=== PATIENT | female | born 1965 | race Caucasian/White ===

== ENCOUNTER 2018-11-06 06:10 | Observation (INO) | payer BC ==
[~2018-11-06] VITALS: Ht 165.1 cm; Wt 66.9 kg
--- NOTE | ~2018-11-06 | HEMODYNAMI ---
PATIENT:RADHA SALINAS MEDICAL RECORD: [id number] : 61 LOCATION:[address] ADMISSION DATE: 11/06/18 Generatedon:11/06/201811:07 Patient name: RADHA SALINAS Patient #: [id number] SSN: : Date of study: 11/06/2018 Page: Of Hemodynamic Procedure Report Patient Data Patient Demographics Procedure consent was obtained First Name: RADHA Gender: Female Last Name: BRAD : 1965 Middle Initial: ADRIANE Age: 53 year(s) Patient #: [id number] Race: Unknown Additional ID: [id number] Contact details Address: [address] [place] [address] State: [facility]: [place] Zip code: [address] Past Medical History Allergies: No known allergies Admission Admission Data Admission Date: 11/06/2018 Admission Time: 6:42 Room #: 2108 Height (in.): 64.96 BSA: 1.73 (m2) Height (cm.): 165 BMI: 24.24 (kg/m2) Weight (lbs.): 145.51 Weight (kg.): 66 Lab Results Lab Result Date: 11/06/2018 Lab Result Time: 0:00 Biochemistry Name Units Result Min Max BUN mg/dl 11 --(-*--)-- 7 18 Creatinine mg/dl 0.7 --(*---)-- 0.6 1.3 CBC Name Units Result Min Max Hemoglobin g/dl 13.5 --(*---)-- 13.5 17.5 Procedure Procedure Types Cath Procedure Diagnostic Procedure LHC LH w/Coronaries Procedure Description Procedure Date Procedure Date: 11/06/2018 Procedure Start Time: 10:58 Procedure End Time: 11:05 Procedure Staff Name Function Obi Mccallum MD Performing Physician Janie Briones RT Monitor Bebo Stearns RN Nurse Juan York RT Scrub Procedure Data Cath Procedure Fluoroscopy Diagnostic fluoroscopy Total fluoroscopy Time: 1.2 time: 1.2 min min Diagnostic fluoroscopy Total fluoroscopy dose: 207 dose: 207 mGy mGy Contrast Material Contrast Material Type Amount (ml) Isovue 300 46 Entry Location Entry Primary Successful Side Size Upsize Upsize Entry Closure Schulz ccessful Closure Location (Fr) 1 (Fr) 2 (Fr) Remarks Device Remarks Radial Right 6 Fr Mechanical artery Short Compression Estimated blood loss: 10 ml Diagnostic catheters Device Type Used For End Catheter Placement DIAGNOSTIC [place] 110cm 5 Procedure Fr catheter ([id number]) Procedure Complications No complications Procedure Medications Medication Administration Route Dosage 0.9% NaCl I.V. 100 ml/hr Oxygen etCO2 Nasal cannula 2 l/min Heparin Flush Bag added to field 2 bags (1000units/500ml NS) Lidocaine 2% added to field 20 Radial Cocktail added to field 1 syringe (Verapomil 2mg/Nitro 400mcg/Heparin 1500units) Versed I.V. 2 mg Fentanyl I.V. 100 mcg Radial Cocktail I.A. 1 syringe (Verapomil 2mg/Nitro 400mcg/Heparin 1500units) Hemodynamics Rest BSA: 1.73 (m2) HGB: 13.5 (g/dl) O2 Consumption: Estimated: 180.89 (ml/min) O2 Co nsumption indexed: Estimated:104.56 (ml/min/m) Heart Rate: 92 (bpm) Pressure Samples Time Site Value (mmHg) Purpose Heart Use Rate(bpm) 11:00 LV 100/5,5 Snapshot 104 11:00 AO 94/76(84) Pullback 106 11:00 LV 95/2,3 Pullback 106 Gradients Valve Time Site 1 Site 2 Mean SEP/DFP Peak To Heart Use (mmHg) (sec/min) Peak Rate (mmHg) (bpm) Aortic 11:00 LV AO 2 15 1 106 95/2,3 94/76(84) Calculations Valve P-P Mean Valve Index Valve Source Name Gradient Area Flow (cm2) Aortic 1 2 1 2 Snapshots Pre Cath Intra NCS Post Cath Vital Signs Time Heart Resp SPO2 etCO2 NIBP (mmHg) Rhythm Pain Sedation Rate (ipm) (%) (mmHg) Status Level (bpm) 10:41:34 95 17 99 35.3 124/82(98) NSR 0 (11) 10(A) , No pain 10:45:41 85 11 98 36.8 116/78(94) NSR 0 (11) 10(A) , No pain 10:49:47 96 28 98 39.8 123/76(103) NSR 0 (11) 10(A) , No pain 10:53:55 93 12 97 38.3 112/75(92) NSR 0 (11) 10(A) , No pain 10:57:57 94 12 97 37.6 118/79(90) NSR 0 (11) 10(A) , No pain 11:02:02 105 12 94 36 109/60(86) NSR 0 (11) 9(A) , No pain 11:06:08 99 11 95 37.6 106/66(94) NSR 0 (11) 9(A) , No pain Medications Time Medication Route Dose Verified Delivered Reason Notes Effectiveness by by 10:41:53 0.9% NaCl I.V. 100 Bebo Bebo Per ml/hr Daryn Stearns physician RN RN 10:42:06 Oxygen etCO2 2 l/min Bebo Bebo for low 02 Nasal Lorigan Daryn sats cannula RN RN 10:42:21 Heparin Flush added 2 bags Bebo Bebo used for Bag to Lorigan Lornatalie procedure (1000units/500ml [facility] RN RN NS) 10:42:35 Lidocaine 2% added 20ml Bebo Bebo for local to vial Lorigan Lorigan anesthetic RN RN 10:42:46 Radial Cocktail added 1 Bebo Bebo used for (Verapomil to syringe Lorigan Lorigan procedure 2mg/Nitro RN RN 400mcg/Heparin 1500units) 10:56:28 Versed I.V. 2 mg Bebo Bebo for sedation Daryn Stearns RN RN 10:56:37 Fentanyl I.V. 100 mcg Bebo Bebo for sedation Daryn Stearns RN RN 10:59:12 Radial Cocktail I.A. 1 Bebo Obi for (Verapomil syringe Lorigan Alessio vasodilation 2mg/Nitro TAMARA GORDON 400mcg/Heparin 1500units) Procedure Log Time Note 10:14:20 Juan York RT(R) sent for patient. Start room use. 10:14:21 Time tracking: Call back (After hours or weekends) 10:14:26 Plan of Care:Hemodynamics will remain stable., Cardiac rhythm will remain stable., Comfort level will be maintained., Respiratory function will remain adequate., Patient/ family verbilizes understanding of procedure., Procedure tolerated without complication., Recovers from procedure without complications.. 10:27:40 Patient received from Med II to CCL 1 Alert and oriented. Tansferred to table in Supine position. 10:27:41 Warm blankets applied, and mady hugger turned on for patient comfort. 10:27:43 Correct patient and procedure confirmed by team. 10:27:50 H&P Date Dictated: 11/05/2018 Within 30 days and on chart., H&P Addendum completed by physician on day of procedure. (MUST COMPLETE FOR ALL OUTPATIENTS). 10:27:53 Pre-procedure instructions explained to patient. 10:28:00 Family in patients room. 10:28:02 Patient NPO since Midnight. 10:28:13 Patient allergic to No known allergies 10:28:17 Is the patient allergic to Iodine/contrast media? No. 10:28:20 Was the patient premedicated? Yes 10:30:15 Patient Height : 64.96 inches 10:30:19 Patient Weight : 145.51 lbs 10:30:46 Lab Result : Hemoglobin 13.5 g/dl 10:30:46 Lab Result : Creatinine 0.7 mg/dl 10:30:46 Lab Result : BUN 11 mg/dl 10:40:29 Is patient on blood thinner?No 10:40:34 Signed procedure consent form obtained from patient. 10:40:36 ECG and BP/O2 sat monitors applied to patient. 10:40:37 Vital chart was started 10:40:42 Full Disclosure recording started 10:40:46 Patient diabetic? No. 10:40:51 Snore? Yes 10:40:53 Sleep apnea? No 10:41:06 IV patent on arrival in left forearm with 0.9% NaCl at [facility]. 10:41:15 Lab results completed and on chart. 10:41:19 Right Radial & Right Groin area was prepped with chlora-prep and draped in sterile fashion 10:41:20 Alarms reviewed by R. N. 10:41:23 Sharps counted by scrub and verified by R.N. 10:41:24 Physician paged 10:41:39 Baseline sample Acquired. 10:41:53 0.9% NaCl 100 ml/hr I.V. was administered by Bebo Stearns RN; Per physician; 10:42:06 Oxygen 2 l/min etCO2 Nasal cannula was administered by Bebo Stearns RN; for low 02 sats; 10:42:21 Heparin Flush Bag (1000units/500ml NS) 2 bags added to field was administered by Bebo Stearns RN; used for procedure; 10:42:35 Lidocaine 2% 20ml vial added to field was administered by Bebo Stearns RN; for local anesthetic; 10:42:46 Radial Cocktail (Verapomil 2mg/Nitro 400mcg/Heparin 1500units) 1 syringe added to field was administered by Bebo Stearns RN; used for procedure; 10:54:47 Physician arrived 10:54:48 --------ALL STOP TIME OUT------ 10:54:49 Final Timeout: patient, procedure, and site verified with staff and physician. All members of the team are in agreement. 10:54:51 Right Radial & Right Groin site verified by team. 10:54:58 Maximum allowable Isovue 300 dose 300ml. Physician notified. (300ml for normal creatinines. For patients with creatinine of 1.7 or higher multiply weight(kg) x 5 divided by creatinine.) 10:55:05 Fire Safety Assessment: A--An alcohol-based skin anteseptic being used preoperatively., C--Open oxygen or nitrous oxide is being used., D--An ESU, laser, or fiber-optic light is being used. 10:55:09 Physical assessment completed. ASA score P 2 - A patient with mild systemic disease as per Obi Mccallum MD. 10:55:13 Sedation plan: IV Moderate Sedation Medication:Versed, Fentanyl 10:55:22 Use device set Radial Dx or PCI 10:55:25 ACIST Syringe (14664) opened to sterile field. 10:55:26 Medline Cath Pack ([id number]) opened to sterile field. 10:55:26 Bag Decanter () opened to sterile field. 10:55:27 DIAGNOSTIC WIRE .035 260cm J wire (905678) opened to sterile field. 10:55:28 Tegaderm 4 x 4 (1626W) opened to sterile field. 10:55:29 MBrace Wrist Support ([id number]) opened to sterile field. 10:55:34 SHEATH 6FR Slender (23-5450) opened to sterile field. 10:55:41 Zero performed for pressure channel P1 10:56:28 Versed 2 mg I.V. was administered by Bebo Stearns RN; for sedation; 10:56:37 Fentanyl 100 mcg I.V. was administered by Bebo Stearns RN; for sedation; 10:58:29 Procedure started. 10:58:52 Local anesthetic to right radial artery with Lidocaine 2% by Obi Mccallum MD.INITIAL ACCESS ONLY 10:59:05 A 6 Fr Short sheath was inserted into the Right Radial artery 10:59:12 Radial Cocktail (Verapomil 2mg/Nitro 400mcg/Heparin 1500units) 1 syringe I.A. was administered by Obi Mccallum MD; for vasodilation; 10:59:56 A DIAGNOSTIC [place] 110cm 5 Fr catheter (496507) was advanced over the wire and used for Procedure. 11:00:00 ACIST Hand Control (18194) opened to sterile field. 11:00:01 ACIST Manifold (25774) opened to sterile field. 11:00:08 j wire advanced. 11:00:23 LV angiography performed. 11:00:50 LCA angiography performed. 11:02:01 RCA angiography performed. 11:02:22 EF : 55 % 11:02:26 Catheter removed. 11:02:42 Sheath removed intact; hemostasis achieved with Mechanical Compression to the Right Radial artery. 11:02:58 TR BAND Standard ([id number]) opened to sterile field. 11:03:01 Procedure ended.(Physican Out) 11:04:13 Fluoroscopy time 01.20 minutes. 11:04:18 Fluoroscopy dose: 207 mGy 11:04:18 Flurop Dose total: 207 11:04:23 Contrast amount:Isovue 300 46ml. 11:04:34 TR band inflated with 10cc of air. 11:04:40 Post Procedure Pulses reassessed and unchanged 11:04:45 Post-procedure physical assessment completed. ASA score P 2 - A patient with mild systemic disease as per Obi Mccallum MD. 11:04:51 Post procedure rhythm: sinus rhythm 11:04:54 Estimated blood loss: 10 ml 11:04:56 Post procedure instruction explained to patient.Patient verbalizes understanding. 11:05:04 Procedure and supply charges have been captured, reviewed, submitted and are correct. 11:05:22 Procedure Complication : No complications 11:05:25 Vital chart was stopped 11:05:26 See physician's report for complete and final results. 11:05:29 Report given to [facility]. 11:05:34 Patient transfered to [facility] with Bed. 11:05:37 Procedure ended. 11:05:37 Full Disclosure recording stopped 11:05:44 End room use (Document Last) Device Usage Item Name Manufacture Quantity Catalog Hospital Part Current Minimal Lot# / Number Charge Number Stock Stock Serial# Code ACIST Acist 1 96725 744849 689392 131897 20 Syringe Medical (82037) Systems Inc Medline Medline 1 [id number] 270268 43936 507501 5 Cath Pack ([id number]) Bag Microtek 1 2001S 029760 85254 747654 5 Decanter Medical Inc. () DIAGNOSTIC St Khris 1 800601 942322 413290 745023 30 WIRE .035 260cm J wire (854172) Tegaderm 4 3M 1 1626W 813879 016905 558308 5 x 4 (1626W) MBrace Advanced 1 140-0250-00 040629 77323 828774 5 Wrist Vascular Support Dynamics ([id number]) SHEATH 6FR Terumo 1 [id number] 237912 600166 034058 5 Slender (80-1060) DIAGNOSTIC Terumo 1 40-7743 540013 082144 471352 5 [place] 110cm 5 Fr catheter (958538) ACIST Hand Acist 1 69695 217022 285938 883659 5 Control Medical (15893) Systems Inc ACIST Acist 1 18809 992079 911379 012506 5 Manifold Medical (91549) Systems Inc TR BAND Terumo 1 [id number] 382813 776438 673737 40 Standard ([id number]) Signature Audit Jackson Stage Time Signature Unsigned Intra-Procedure 11/06/2018 Janie Briones 11:07:12 AM RT(R) Signatures Monitor : Janie Briones Signature : RT Date : Time : [place] [address] [place] [address]
[2018-11-06] MEDS ORDERED: SYNTHROID100 MCG PO (06:19)
[2018-11-06] MEDS ORDERED: ESTRACE1 MG PO (06:19)
[2018-11-06 07:21] LABS: CKMB 1.5 U/L (0.0-3.6); CREATINE KINASE 86 UL (21-215)
--- NOTE | 2018-11-06 07:22 | NUR ---
RECEIVED PATIENT VIA WHEELCHAIR FROM THE ED. RECEIVED REPORT FROM SPIKE. PATIENT ALERT/ORIENTED/AMBUALTORY. DENIES PAIN AT THIS TIME. PATIENT SPOUSE AT BEDSIDE WITH HER. NO DISTRESS.
[2018-11-06 07:24] LABS: TROPONIN-I 0.076 ng/mL (0.000-0.060)
[2018-11-06 08:03] VITALS: BP 135/78
[2018-11-06 08:30] LABS: BASOPHILS 0.1 % (0-2); EOSINOPHILS 0.8 % (0-7); HEMATOCRIT 40.1 % (36.0-48.0); HEMOGLOBIN 13.5 g/dL (12-16); IMMATURE GRANULOCYTES 0.1 % (0-5); LYMPHOCYTES 20.9 % (15-50); MCH 32.1 pg (26.0-34.0); MCHC 33.7 g/dL (31.0-37.0); MCV 95.5 fL (80.0-100.0); MEAN PLATELET VOLUME 10.2 fL (7.4-10.4); MONOCYTES 8.9 % (2-11); NEUTROPHILS 69.2 % (40-80); PLATELET COUNT 247 10x3/uL (130-400); WBC 11.8 10x3/uL (4.8-10.8)
[2018-11-06 08:59] LABS: CALC OSMOLALITY 273 mosm/kg (275-300); CALCIUM 8.2 mg/dL (8.5-10.1); CHLORIDE - SERUM 104 mmol/L (98-107); CREATININE - SERUM 0.7 mg/dL (0.6-1.3); GLUCOSE 119 mg/dL (74-106); SODIUM 137 mmol/L (136-145); UREA NITROGEN 11 mg/dL (7-18); eGFR NON AFRICAN AMERICAN > 90 mL/min (90-120)
--- NOTE | 2018-11-06 10:16 | NUR ---
PREOP MEDS GIVEN ORDERED. NO DISTRESS.
--- NOTE | 2018-11-06 10:33 | NUR ---
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 NO DISTRESS.
--- NOTE | 2018-11-06 11:31 | NUR ---
PATIENT RETURNED TO UNIT FROM BACK LINE COOK WITH TR BAND TO RIGHT RADIAL. PULSES PATENT. NO BLEEDING FROM TR BAND. ALERT/ORIENTED. CALL LIGHT WITHIN REACH. NO DISTRESS.
--- NOTE | 2018-11-06 12:53 | NUR ---
ATTEMPTED TO RELEASE AIR FROM TR BAND, PATIENT STARTED BLEEDING FROM SITE, AIR REPLACED, NO BLEEDING, WILL ATTEMPT IN 15 MINUTES PER PROTOCOL.
[2018-11-06 13:25] VITALS: BP 113/71
--- NOTE | 2018-11-06 13:39 | NUR ---
5ML OF AIR ABLE TO BE REMOVED FROM TR BAND AT THIS TIME. NO DISTRESS.
[2018-11-06 14:27] VITALS: BP 135/78; Ht 165.1 cm; Wt 66.9 kg
--- NOTE | 2018-11-06 14:30 | NUR ---
1415 TR BAND REMOVED FROM RIGHT WRIST. NO BLEEDING. 2X2 GAUZE APPLIED AND SECURED WITH TEGADERM CLEAR DRESSING. NO DISTRESS.
--- NOTE | 2018-11-06 16:00 | NUR ---
1500 20 GAUGE IV CATHETER REMOVED FROM LEFT FOREARM. NO BLEEDING FROM SITE. 2X2 GAUZE APPLIED TO SITE AND COVERED WITH BANDAID. 1515 DISCHARGE INSTRUCTIONS PROVIED TO PATIENT AND HER . VERBALIZED UNDERSTANDING OF ALL INSTRUCTIONS PROVIDED. 1545 PATIENT LEFT UNIT WITH ALL PERSONAL BELONGINGS. PATIENT IN NO DISTRESS UPON LEAVING UNIT VIA WHEELCHAIR. PATIENT DISCHARGED TO HOME WITH VIA PERSONAL VEHICLE.
--- NOTE | 2018-11-07 02:13 | CN ---
PATIENT NAME:RADHA SALINAS MEDICAL RECORD: [id number] : 61 LOCATION:D. D.2108 ADMIT DATE: 11/06/18 ACCOUNT: [id number] CONSULTING PHYSICIAN: EUNICE PORTILLO MD REFERRING PHYSICIAN: JULIET WINTER MD DATE OF CONSULTATION: 11/06/2018 HISTORY OF PRESENT ILLNESS: A 53-year-old female with no known history of coronary artery disease, has a strong family history of coronary artery disease, yesterday was hiking, had onset of chest pressure and tightness with exertion, unrelieved with rest, tried antacids, eventually presented to the ER, found to have elevated troponin and transferred here from [place] for further evaluation. PAST MEDICAL HISTORY: Includes history of valve replacement. ALLERGIES: None known. MEDICATIONS: Include Synthroid 88 mcg every day. SOCIAL HISTORY: , lives in [place], does exercise. She is a nonsmoker. REVIEW OF SYSTEMS: The patient reports easy bruising but reports no swollen glands. The patient reports no fever, no night sweats, no significant weight gain, no significant weight loss. No significant exercise tolerance. The patient reports no dry eyes, no irritation, no vision change. Patient reports no difficulty hearing and no ear pain. Patient reports no frequent nose bleeds or nose and sinus problems. Patient reports on arm pain on exertion. No shortness of breath while lying down. No history of heart murmur. Patient reports no cough, no wheezing or coughing up blood. Patient reports no abdominal pain, no vomiting. Normal appetite. No diarrhea and not vomiting blood. No nausea and no constipation. Patient reports no incontinence. No difficulty urinating. No hematuria. No increased frequency. Patient reports no muscle aches. No weakness, no arthralgias, no back pain. No swelling of the extremities. Patient reports no abnormal mole, no jaundice, no rashes. Reports no loss of consciousness. No weakness and no numbness. No seizures, dizziness, or headaches. The patient reports no depression, no sleep disturbance, feeling safe in a relationship and no alcohol abuse. Patient reports on fatigue. Reports no runny nose or sinus pressure. No itching, no hives, and no frequent sneezing. PHYSICAL EXAMINATION: GENERAL: Pleasant female in no acute distress, appears stated age. VITAL SIGNS: Blood pressure 125/77, pulse 94 and regular. HEENT: Normocephalic, atraumatic. NECK: No JVD or bruit. HEART: Regular, questionable S4 gallop. LUNGS: Good air excursion. ABDOMEN: Soft, nontender. EXTREMITIES: Pulses 2+. There is no edema. DIAGNOSTIC DATA: ECG has minor nonspecific ST-T changes, certainly not diagnostic. IMPRESSION: Acute coronary syndrome. Angiography, intervention based on above. CONSULT REPORT [id number] BRADRADHA ADRIANE TRANSINT:[id number] Voice Confirmation ID: [id number] DOCUMENT ID: [id number] EUNICE PORTILLO MD at 0213 CC: [id number] DICTATION DATE: 11/06/18820 WAREHOUSE DELIVERY MANAGER: 11/06/18 1133 DIS IN 11/06/18 [place] [address] [place] [address]
--- NOTE | 2018-11-07 02:13 | OP ---
PATIENT NAME: RADHA SALINAS MEDICAL RECORD: [id number] :61 LOCATION:D.M2 D.2108 ADMISSION DATE:11/06/18 SURGEON: EUNICE PORTILLO MD DATE OF OPERATION: 11/06/2018 PROCEDURE: Left heart catheterization, selective coronary angiography, right radial approach. CATHETERS: Radial sheath, [place]vane catheter. The procedure was well tolerated. The patient was returned to [facility], sheath removed. TR band was placed. FINDINGS: Left ventriculography in 30-degree ADORNO view: Normal wall motion. Normal systolic function. CORONARY ANATOMY: LEFT MAIN: Left main is free of disease. LAD: Free of disease in the diagonal system. CIRCUMFLEX: Free of disease in the marginal system. RIGHT CORONARY ARTERY: Somewhat codominant system, free of disease. IMPRESSION: Normal coronary anatomy, normal left ventricular function. TRANSINT:[id number] Voice Confirmation ID: [id number] DOCUMENT ID: [id number] EUNICE PORTILLO MD at 0213 CC: [id number] DICTATION DATE: 11/06/18 1109 GUYLINE OPERATOR: 11/06/18 1150 DIS IN 11/06/18 [facility] [address] [place] [id number]
--- NOTE | 2018-11-07 08:14 | MORECARE ---
CASE MANAGEMENT DISCHARGE SUMMARY PATIENT: RADHA SALINAS UNIT: [id number] ADM DATE: 11/06/18 AGE: 53 : 61 SEX: F ROOM/BED: D.2108 AUTHOR: AVELINO ADAMS PHYSICIAN: REFERRING PHYSICIAN: JULIET WINTER MD DATE OF SERVICE: 11/07/18 Discharge Plan Patient Name: RADHA SALINAS [facility] : 1965 Planned Disposition: Home Anticipated Discharge Date: 11/06/18 Discharge Date: 11/06/2018 Expected LOS: 1 Initial Reviewer: [email or web address] Initial Review Date: 11/07/2018 Generated: 11/07/18 9:14 am Patient Name: RADHA SALINAS Page 21424 at 0814 All edits/amendments must be made on the electronic document DICTATION DATE: 11/07/18812 ROTARY ROCK DRILLING MACHINE OPERATOR: MIKE 11/07/18812 RPT#: [id number] DC DATE:11/06/18 STATUS: DIS IN [facility] [address] [place] [address] END OF REPORT
== END 2018-11-06 15:45 | disposition home or self-care (01) ==
LOC: D.ER 06:10 → OBSVTIME 06:42 → D.M2 06:42
PROVIDERS: Emergency Medicine; Internal Medicine Interventional Cardiology; ADMIT Emergency Medicine; ATTEND Emergency Medicine
DX: I24.9 Acute ischemic heart disease, unspecified (principal); Z82.49 Family history of ischemic heart disease and other diseases of the circulatory system